=== PATIENT | female | born 1970 | race Caucasian/White ===

== ENCOUNTER 2022-02-20 11:05 | Outpatient (CLI) | payer OTHER, SELFPAY | END 2022-02-20 11:06 | disposition home or self-care (01) | LOC: LONREF 11:05 | PROVIDERS: PCP Obstetrics & Gynecology; Visit Provider Obstetrics & Gynecology | DX: Z01.419 Encounter for gynecological examination (general) (routine) without abnormal findings (principal) | CPT/HCPCS: 87624; 88175 ==

== ENCOUNTER 2022-10-06 11:41 | Outpatient (CLI) | payer OTHER, SELFPAY | END 2022-10-06 11:42 | disposition home or self-care (01) | PROVIDERS: PCP Obstetrics & Gynecology; Visit Provider Obstetrics & Gynecology | DX: R39.15 Urgency of urination (principal) | CPT/HCPCS: 87086 ==

== ENCOUNTER 2023-08-31 09:57 | Outpatient (CLI) | payer OTHER, SELFPAY | END 2023-08-31 09:58 | disposition home or self-care (01) | LOC: NFLDREF 10:03 | PROVIDERS: Visit Provider Obstetrics & Gynecology | DX: R35.0 Frequency of micturition (principal) | CPT/HCPCS: 87086 ==

== ENCOUNTER 2024-09-11 10:11 | Outpatient (CLI) | payer BC, SELFPAY ==
[2024-09-13 23:06] LABS: HPV Source Cervix; HPV, High Risk by TMA Not Detected
== END 2024-09-11 10:12 | disposition home or self-care (01) ==
PROVIDERS: Visit Provider Obstetrics & Gynecology
DX: Z12.4 Encounter for screening for malignant neoplasm of cervix (principal); Z11.51 Encounter for screening for human papillomavirus (HPV)
CPT/HCPCS: 87624; 87625; 88141; 88142